=== PATIENT | male | born 1950 | race Caucasian/White ===

== ENCOUNTER 2023-01-05 13:38 | Emergency (ER) | payer MEDICARE, OTHER, SELFPAY ==
[2023-01-05 13:39] VITALS: BP 144/115; PULSE 95; RESP 18; TEMP 36.1; O2SAT 99; BMI 40.1
[2023-01-05 16:12] VITALS: BP 153/85; PULSE 74; RESP 18; O2SAT 99
--- NOTE | 2023-01-05 16:43 | RAD_ITS ---
INDICATION: Trauma, hand laceration EXAMINATION/TECHNIQUE: X-RAY - LEFT XR Hand Min 3 Views 3 VIEWS COMPARISON: None. FINDINGS: SOFT TISSUES: No soft tissue swelling or gas. No radiopaque foreign body. BONES/JOINTS: No acute fracture. Joint spaces anatomically aligned with mild degenerative osteophytic changes. No sclerotic or destructive changes observed. RAD/Hand Min 3 Views IMPRESSION: No acute bony abnormality. Electronically Signed: Pee Cardenas MD at 17:21 EDT ,
[2023-01-05] MEDS: Lidocaine 1% (20 ml mdv) 20 ML Vial 3 ML INFILT (16:48)
[2023-01-05] MEDS: Diphth,Pertuss(Acell),Tet Vac 0.5 ML Vial IM (17:13)
--- NOTE | 2023-01-05 17:20 | EDS_ITS ---
HPI <Dr. Emir Haddad DO - Last Filed: 01/05/23 17:27> History of Present Illness Chief Complaint: Laceration <JOAQUIM Covington - Last Filed: 01/05/23 17:26> Narrative Narrative: Patient is a 72-year-old male with history of atrial fibrillation, hypertension who presents to the emergency department with left index finger pain after a laceration. Patient was using a small saw when it kicked back striking the back of his index finger. Patient is full range of motion, secondary to being on Xarelto he could not quit bleeding so is here for evaluation. He is unsure of his tetanus status. PFSH <Dr. Emir Haddad DO - Last Filed: 01/05/23 17:27> PFSH Allergy/AdvReac Type Severity Reaction Status Date / Time No Known Allergies Allergy Verified 01/05/23 13:39 Social History Smoking Status: Never smoker ROS <JOAQUIM Covington - Last Filed: 01/05/23 17:26> ROS ED ROS Narrative Constitutional: Negative for fever, chills, weight loss, weakness Eyes: Negative for vision loss, vision change, double vision ENT: Negative for any sore throat, ear pain, congestion Cardiovascular: Negative for any chest pain, tightness, palpitations Respiratory: Negative for any cough, sputum production, hemoptysis, dyspnea, dyspnea on exertion, orthopnea Gastrointestinal: Negative for any abdominal pain, nausea, vomiting, diarrhea, constipation, blood in stool, blood in vomit : Negative for any urinary frequency, dysuria, retention, blood in urine Muscle skeletal: Negative for any muscle joint pain, stiffness, myalgias, arthralgias, neck pain, back pain. Positive for left index finger pain, laceration Neurological: Negative for any headache, syncope, numbness or tingling, dizziness Skin: Negative for any rashes, lumps, itching, abrasions, lacerations Psychiatric: Negative for any depression, anxiety, stress, suicidal ideation, homicidal ideation Hematologic: Negative for any easy bruising, excessive bruising, easy bleeding Allergies: Negative for any eczema, hives, rash EXAM <DO Esme Ortez Last Filed: 01/05/23 17:27> Physical Exam Const Vital Signs: 01/05/23 13:39 01/05/23 16:12 Temperature 96.9 F L Temperature Source Temporal Pulse Rate 95 74 Respiratory Rate 18 18 Blood Pressure 144/115 H 153/85 H Blood Pressure Mean 124 107 Pulse Ox 99 99 Oxygen Delivery Method Room Air Room Air <Irwin ShahJOAQUIM garrido - Last Filed: 01/05/23 17:26> Physical Exam Narrative Exam Narrative: Vital signs reviewed. Extremities: Patient is able to flex and extend the left index finger. He is able to move it against resistance. There is no evidence suspect any tendon injury. Patient does have 3 separate lacerations that are close together. Patient does have bleeding on assessment. No foreign body noted. Neuro: Cranial nerves II through XII intact, no focal neurological deficits. Skin: Clean dry and intact with no rash, purpura, petechiae, vesicles or pustules. Backs/flank: No CVA tenderness, no midline spinal tenderness, no deformity. Psych: Normal mood and affect. No SI, HI or acute psychosis. Const Vital Signs: 01/05/23 13:39 01/05/23 16:12 Temperature 96.9 F L Temperature Source Temporal Pulse Rate 95 74 Respiratory Rate 18 18 Blood Pressure 144/115 H 153/85 H Blood Pressure Mean 124 107 Pulse Ox 99 99 Oxygen Delivery Method Room Air Room Air MDM <Dr. Emir Haddad DO - Last Filed: 01/05/23 17:27> MDM Radiography Diagnostic Testing: Clinical Impression(s) from Imaging Studies Hand X-Ray 01/05/23 16:43 IMPRESSION: No acute bony abnormality. Electronically Signed: Pee Cardenas MD at 17:21 EDT , Treatment and Re-Evaluation Comments:: I have personally performed a face to face assessment of the patient and have reviewed the ISABEL Note. I performed a substantive portion of the visit including all aspects of the following. My clements findings include: History: Patient was using a 12 inch chainsaw when it bucked causing several lacerations to the dorsum of the left index finger. He is on Xarelto for atrial fibrillation. Bleeding was unable to be controlled at home. Exam is several linear lacerations to the dorsum of the left index finger along the proximal phalanx. Extensor mechanism is intact against resistance. Neurovascularly intact. Mild venous oozing. Medical Decison Making: My interpretation of the plain films is soft tissue injury but no bony involvement. Wound was locally anesthetized and sutured by nurse practitioner. Tetanus was updated. Wound care discussed with patient. Follow-up with primary care for suture removal and wound check <JOAQUIM Covington - Last Filed: 01/05/23 17:26> MDM Radiography Diagnostic Testing: Clinical Impression(s) from Imaging Studies Hand X-Ray 01/05/23 16:43 IMPRESSION: No acute bony abnormality. Electronically Signed: Pee Cardenas MD at 17:21 EDT , Treatment and Re-Evaluation :: Patient appears generally well, patient appears nontoxic, vital signs are stable.Patient presents to the emergency department with a left index finger laceration of the dorsal aspect of the finger. Patient did receive an x-ray just to ensure there is no open fracture. X-ray inter by ER physician 3 view left hand shows no acute bony abnormality. Patient's tetanus vaccination was updated today. I was able to place 13 simple ruptured sutures to these lacerations. They were all within 1.5-2 cm. Patient had full range of motion. No foreign body noted. Patient will have these removed in 7 to 10 days. Dressing will be applied. He is given strict return precaution. Stable for discharge. Procedures <JOAQUIM Covington - Last Filed: 01/05/23 17:26> Lacerations Left index finger laceration: Length: 0.79 in Depth: Sub Q Shape: Linear Prep: Sterile Conditions and Shure-Clens Laceration repair: Debrideded and Irrigated Irrigated (ml): 200 Number of Sutures/[place]: 13 Suture Information: Ethilon Comment: Sterile gloves, sterile drapes were used. Discharge Plan Triage Chief Complaint: Laceration ED Midlevel Provider: Irwin Santos ED Provider: Emir Haddad Dx/Rx/DC Orders Clinical Impression: Finger laceration Activity Restrictions/Additional Instructions: You have 13 sutures secondary to the multiple lacerations caused by the chainsaw. These need to be removed in 7 to 10 days. Keep clean and dry. Change dressings twice a day. After 3 to 4 days, may leave uncovered at nighttime. Disposition Disposition: Home, Self Care
== END 2023-01-05 17:54 | disposition home or self-care (01) ==
LOC: ED 17:29
PROVIDERS: Emergency Provider Emergency Medicine; Visit Provider Emergency Medicine
DX: I48.91 Unspecified atrial fibrillation (principal); I10 Essential (primary) hypertension; S61.211A Laceration without foreign body of left index finger without damage to nail, initial encounter; W29.8XXA Contact with other powered hand tools and household machinery, initial encounter; Z79.01 Long term (current) use of anticoagulants; Z23 Encounter for immunization
CPT/HCPCS: 12001; 73130; 90471; 90715; 99282